=== PATIENT | male | born 1990 | race Hispanic/Latino ===

== ENCOUNTER 2018-10-20 18:08 | Emergency (ER) | payer SELFPAY ==
[2018-10-20] MEDS ORDERED: Adacel (T-DAP) 0.5 ML SYRINGE ONE (18:26)
[2018-10-20] MEDS ORDERED: Lidocaine 1% (PF) 30 ML VIAL ONE (19:12)
--- NOTE | 2018-10-20 19:12 | RAD ---
RIGHT FEMUR TWO VIEW 10/20/18 HISTORY: Injury. Fall. COMPARISON: None. FINDINGS: Seen only on the AP image, there appears to be a straight blade projecting over the right lateral thi gh. This is the only image that is it seen. No fracture. No malalignment of the femur. IMPRESSION: Only seen on the first AP image is what appears to be a straight blade projecting over the soft tissu es over the thigh. POS: [facility]AC
== END 2018-10-20 20:07 | disposition home or self-care (01) ==
LOC: ERS 18:08
DX: S71.111A Laceration without foreign body, right thigh, initial encounter (principal); J45.909 Unspecified asthma, uncomplicated; F17.210 Nicotine dependence, cigarettes, uncomplicated; Z79.899 Other long term (current) drug therapy; W26.0XXA Contact with knife, initial encounter
CPT/HCPCS: 12002; 90471; 90715; G0390; J2001

== ENCOUNTER 2018-10-31 14:15 | Emergency (ER) | payer SELFPAY | END 2018-10-31 14:53 | disposition home or self-care (01) | LOC: ERS 14:15 | DX: S71.111D Laceration without foreign body, right thigh, subsequent encounter (principal); J45.909 Unspecified asthma, uncomplicated; F32.9 Major depressive disorder, single episode, unspecified; F17.210 Nicotine dependence, cigarettes, uncomplicated ==

== ENCOUNTER → 2019-02-01 | Emergency (ER) | payer SELFPAY | LOC: ERS 13:17 | DX: Z53.21 Procedure and treatment not carried out due to patient leaving prior to being seen by health care provider (principal) | CPT/HCPCS: 93005 ==